=== PATIENT | male | born 1955 | race Caucasian/White ===

== ENCOUNTER 2016-07-27 10:24 | Emergency (ER) | payer OTHER ==
[~2016-07-27] VITALS: Ht 182.9 cm; Wt 86.2 kg
[2016-07-27 10:29] VITALS: BP 138/80; PULSE 92; RESP 15; TEMP 97.4; O2SAT 96
--- NOTE | 2016-07-27 10:33 | NUR ---
Pt to bed 8
--- NOTE | 2016-07-27 10:35 | NUR ---
ER at bedside examining patient.
--- NOTE | 2016-07-27 10:40 | NUR ---
PT PRESENTS TO ED C/O RASH OF R TORSO. PT HAS NO ACUTE DISTRESS NOTED.
[2016-07-27] MEDS ORDERED: IBUPROFEN 800 MG TABLET PO ONE (10:45)
[2016-07-27 11:05] VITALS: BP 135/82; PULSE 92; RESP 15; TEMP 97.4; O2SAT 96
--- NOTE | 2016-07-27 11:05 | NUR ---
Patient given written and verbal discharge instructions and verbalizes understanding. ER MD discussed with patient the results and treatment provided. Given copies of tests performed in ER. Patient in stable condition. ID arm band removed. Rx of NORCO,MOTRIN,ACYCOVIR given. Patient educated on pain management and to follow up with PMD. Pain Scale 2. Opportunity for questions provided and answered.
== END 2016-07-27 11:05 | disposition home or self-care (01) ==
LOC: SED 10:24
DX: B02.9 Zoster without complications (principal); R03.0 Elevated blood-pressure reading, without diagnosis of hypertension; E78.00 Pure hypercholesterolemia, unspecified
CPT/HCPCS: 99283; J7030

== ENCOUNTER 2016-07-29 18:32 | Emergency (ER) | payer OTHER ==
[~2016-07-29] VITALS: Ht 182.9 cm; Wt 86.2 kg
[2016-07-29 18:39] VITALS: BP 136/96; PULSE 104; RESP 16; TEMP 100.2; O2SAT 95
[2016-07-29] MEDS ORDERED: NACL 0.9% 1,000 ML IV ONE (19:00)
[2016-07-29] MEDS ORDERED: ACETAMINOPHEN 500 MG TABLET PO ONE (19:00)
[2016-07-29 19:15] LABS: BASOPHILS # (AUTO) 0.1 K/uL (0.0-0.2); BASOPHILS % (AUTO) 1.9 % (0.0-2.0); EOSINOPHILS # (AUTO) 0.2 K/uL (0.0-0.4); EOSINOPHILS % (AUTO) 4.2 % (0.0-4.0); HEMATOCRIT 44.1 % (36-54); HEMOGLOBIN 14.9 g/dL (14.0-18.0); LYMPHOCYTES # (AUTO) 0.7 K/uL (1.0-5.5); LYMPHOCYTES % (AUTO) 12.3 % (20.5-51.5); MEAN CORPUSCULAR HEMOGLOBIN 31 pg (27-31); MEAN CORPUSCULAR HGB CONC 34 % (32-36); MEAN CORPUSCULAR VOLUME 91 fL (79.0-98.0); MONOCYTES # (AUTO) 0.6 K/uL (0.0-1.0); NEUTROPHILS # (AUTO) 3.7 K/uL (1.8-7.7); NEUTROPHILS % (AUTO) 69.6 % (40.0-70.0); PLATELET COUNT (AUTO) 159 K/uL (130-430); RED BLOOD CELL COUNT(AUTO) 4.86 MIL/uL (4.2-6.2); RED CELL DISTRIBUTION WIDTH 11.9 % (9.0-15.0); WHITE BLOOD COUNT (AUTO) 5.3 K/uL (4.8-10.8)
[2016-07-29 19:20] LABS: CALCIUM 8.6 mg/dL (8.4-11.0); CREATININE 0.84 mg/dL (0.55-1.30); POTASSIUM 3.9 mmol/L (3.5-5.1)
[2016-07-29 19:24] LABS: ALBUMIN 3.7 g/dL (3.4-4.8); TOTAL BILIRUBIN 0.5 mg/dL (0.0-1.0); TOTAL PROTEIN, SERUM 7.5 g/dL (6.4-8.3)
[2016-07-29 21:00] VITALS: BP 132/96; PULSE 104; RESP 16; TEMP 100.2; O2SAT 95
== END 2016-07-29 21:00 | disposition home or self-care (01) ==
LOC: SED 18:32
DX: J20.9 Acute bronchitis, unspecified (principal); B02.9 Zoster without complications; E78.5 Hyperlipidemia, unspecified
CPT/HCPCS: 36415; 71010; 80053; 85025; 87040; 93005; 96360; 99285; J7030